=== PATIENT | male | born 1990 | race Caucasian/White ===

== ENCOUNTER 2020-12-19 18:11 | Emergency (ER) | payer OTHER ==
[~2020-12-19] VITALS: Ht 170.2 cm; Wt 63.5 kg
[2020-12-19 20:25] VITALS: BP 00/100
== END 2020-12-19 20:26 | disposition home or self-care (01) ==
LOC: ER 18:11
DX: M79.672 Pain in left foot (principal); Z88.1 Allergy status to other antibiotic agents